=== PATIENT | male | born 1950 | race Caucasian/White ===

== ENCOUNTER 2016-08-07 18:25 | Emergency (ER) | payer OTHER ==
[2016-08-07 15:55] LABS: BASOPHILS 0 %; EOSINOPHILS 0 %; IMMATURE GRANULOCYTES 0.3 %; IMMATURE GRANULOCYTES ABSOLUTE 0.01 10/3/uL (0.0-0.11); LYMPHOCYTES 22.5 %; LYMPHOCYTES ABSOLUTE 0.84 10/3/uL (0.67-4.30); MEAN CORPUS HGB CONC 34.1 g/dL (32.0-36.0); MEAN CORPUSCULAR HEMOGLOB 33.5 pg (26.0-34.0); MEAN CORPUSCULAR VOLUME 98.3 fL (80-100); MEAN PLATELET VOLUME 10.7 fL (9.2-13.0); MONOCYTES ABSOLUTE 0.26 10/3/uL (0.21-1.20); NEUTROPHILS 70.2 %; NEUTROPHILS ABSOLUTE 2.63 10/3/uL (2.02-8.40); PLATELET COUNT 239 10/3/uL (150-400); RBC DISTRIBUTION WIDTH 14.4 % (12.0-16.0)
[2016-08-07 15:56] LABS: ER CBC TAT 0 Hrs 08 Mins; HEMATOCRIT 45.2 % (40.0-51.0); HEMOGLOBIN 15.4 g/dL (13.6-17.8); MANUAL DIFF NO %; WHITE BLOOD CELLS 3.7 10/3/uL (4.5-10.5)
[2016-08-07 16:09] LABS: BUN (BLOOD UREA NITROGEN) 9 MG/DL (6-23); CALCIUM, SERUM 8.7 MG/DL (8.5-10.4); CHEST PAIN PROFILE TAT 0 Hrs 21 Mins; CHLORIDE, SERUM 100 MMOL/L (96-112); CO2 (CARBON DIOXIDE) 29 MMOL/L (24-34); CREATININE 1.19 MG/DL (0.70-1.30); GFR AFRICAN AMERICAN 73 ML/MIN (>=60); GFR NON AFRICAN AMERICAN 63 ML/MIN (>=60); GLUCOSE, SERUM 116 MG/DL (60-99); POTASSIUM, SERUM 3.6 MMOL/L (3.5-5.3); SODIUM, SERUM 136 MMOL/L (135-148); TROPONIN I 0.02 NG/ML (<0.05)
[2016-08-07 16:13] LABS: INTERNATIONAL NORMAL RATI 1.4 UNITS (-); PARTIAL THROMBO TIME 30.5 SEC (22.5-37.2); PROTIME (NOT ORD) 17.3 SEC (12.0-14.5)
[~2016-08-07 18:25] MED LIST: ASAB PO; B121000P IM; BETAMETH DIP0.052 TOP; CENTRUM PO; COREG3 PO; COUMADIN4 MG PO; COUMADIN6 MG PO; COUMADIN7.5 MG PO; CRESTOR40 MG PO; FLEXERIL5 MG PO; LORTAB 5 PO; NEXIUM40 PO; NORCO1 TA1 PO; NORCO1 TAB PO; NORV25 PO; PRILO PO; PROTONIX PO; RX CREAM TOP; ZANTAC 150 PO; ZANTAC300 MG PO; [UNRECOGNIZED DRUG - REMARK] PO; [UNRECOGNIZED DRUG - SUPPLY] TOP
== END 2016-08-07 20:57 | disposition home or self-care (01) ==
LOC: ER 18:25
PROVIDERS: Emergency Medicine
DX: R51 Headache (principal); J18.9 Pneumonia, unspecified organism; I10 Essential (primary) hypertension; Z88.5 Allergy status to narcotic agent; Z88.8 Allergy status to other drugs, medicaments and biological substances; Z79.899 Other long term (current) drug therapy; Z79.01 Long term (current) use of anticoagulants
CPT/HCPCS: 70450; 71020; 80048; 83735; 84484; 85025; 85610; 85730; 93005; 96372; 99284; J1170; J2405

== ENCOUNTER 2016-08-25 10:52 | Inpatient (IN) | payer OTHER ==
[2016-08-23 22:32] LABS: ALBUMIN 3.3 G/DL (3.5-5.0); CALCIUM, SERUM 8.1 MG/DL (8.5-10.4); CHLORIDE, SERUM 96 MMOL/L (96-112); CO2 (CARBON DIOXIDE) 26 MMOL/L (24-34); CREATININE 1.45 MG/DL (0.70-1.30); GFR AFRICAN AMERICAN 58 ML/MIN (>=60); GFR NON AFRICAN AMERICAN 50 ML/MIN (>=60); GLUCOSE, SERUM 120 MG/DL (60-99); SGOT(AST) 191 U/L (5-40); SGPT(ALT) 104 U/L (5-65); SODIUM, SERUM 132 MMOL/L (135-148); TOTAL BILIRUBIN 0.8 MG/DL (0-1.2)
[2016-08-23 22:37] LABS: A/G RATIO 0.9 (0.7-1.9); ALKALINE PHOSPHATASE 85 U/L (45-117); BUN (BLOOD UREA NITROGEN) 22 MG/DL (6-23); GLOBULIN 3.7 G/DL (2.5-4.1); POTASSIUM, SERUM 4.5 MMOL/L (3.5-5.3)
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
--- NOTE | ~2016-08-25 | DS ---
Discharge Summary [place] [address] [place]. [address] NAME: BANDAR TRAYLOR : 50 STATUS : DIS IN PAT#: [id number] AGE: 66 ADM/REG DATE : 08/25/16 MR#: [id number] REPORT SERV DATE: 08/31/16 DICTATED BY: JASPER MENARD DATE: 08/30/16 REPORT STATUS : Draft TRANSCRIBED BY: ROGE DATE: 08/30/16 ADMISSION DATE: 08/25/2016 DISCHARGE DATE: 08/30/2016 DISCHARGE DIAGNOSES: 1. Sepsis. 2. Pneumonia. 3. Atrial fibrillation with rapid ventricular response, on chronic anticoagulation, INR therapeutic. 4. Hypertension. 5. Remote history of bilateral deep vein thrombosis. DISCHARGE CONDITION: Stable. HISTORY OF PRESENT ILLNESS: For detailed HPI, make reference to Dr. Charlene Regalado's dictation on 08/25/2016. In brief, this is a 66-year-old male with medical history of atrial fibrillation on chronic anticoagulation who presented to the hospital with complaints of fever. It was noted that the patient measured his temperature at home. It was 102.7. On arrival in the ER, vitals, blood pressure was 117/72, temperature was 98.3, respiratory rate 22, saturating 94% on room air. Physical exam was noted for diminished breath sounds bilaterally with decreased respiratory effort. Heart rate was irregularly irregular. LABORATORY DATA: Sodium was 133, potassium was 4.4, creatinine was 1.1. White cell count was 9.7. Procalcitonin was 1.19. Chest x-ray shows hyper aerated lungs with mild interstitial thickening consistent with possible COPD but noted on the CT of the chest, abdomen, and pelvis was interval development of bibasilar interstitial thickening with possible infiltrates concerning for pneumonia. Also noted was a perinephric fat stranding nonspecific but concerning for possible pyelonephritis. The patient was admitted to the hospital with diagnosis of sepsis to rule out pneumonia versus pyelonephritis. HOSPITAL COURSE: 1. Sepsis. Blood culture and urine cultures were obtained. The patient was started on broad-spectrum antibiotics with ceftriaxone and doxycycline. Of note, on presentation, the patient also reported possible exposure to tick and concern for Lyme disease. However, the patient's primary care physician had ordered a Lyme serology. Lyme serology came back negative during the course of this admission. The patient continued broad-spectrum antibiotics throughout the course of this admission. Urology was consulted to evaluate the patient to comment on the CT findings of perinephric abscess with the presence of low-grade UPJ obstruction. Per Urology, urinalysis was negative. Urine culture negative. The patient's source of sepsis less likely to be pyelonephritis based on negative evaluation. Also, the low-grade UPJ was nonsignificant, likely noted obstruction was due to the gonadal vessels. No urological intervention was performed during the course of this admission. The patient's procalcitonin trended down and returned back to normal. The patient's fever also subsided. The patient had a respiratory culture that grew normal victor m. Also, there was concern for possible mycobacterium avium per the patient's report. Hence, an AFB Discharge Summary [address] [address] NAME: BANDAR TRAYLOR : 50 STATUS : DIS IN PAT#: [id number] AGE: 66 ADM/REG DATE : 08/25/16 MR#: [id number] REPORT SERV DATE: 08/31/16 DICTATED BY: JASPER MENARD DATE: 08/30/16 REPORT STATUS : Draft TRANSCRIBED BY: ROGE DATE: 08/30/16 was done but returned negative. The patient was advised to complete empiric treatment for pneumonia with ceftriaxone and doxycycline to complete a total of seven days therapy. The patient was discharged in a stable condition. 2. Atrial fibrillation with RVR. The patient's INR remained therapeutic throughout the course of this admission. The patient was continued on Lopressor 12.5 mg. The patient's heart rate was controlled. The patient had no chest pain. No elevated troponin throughout the course of this admission. No cardiovascular intervention was performed during this admission. The patient was advised to continue warfarin and beta zeinab and follow up with primary care physician as well as the primary supervisor pumping. 3. Transaminitis. The patient's liver enzyme was marginally elevated but remained stable throughout the course of this admission. The patient reported that he has extensive history of alcohol abuse. Etiology of mildly elevated AST and ALT likely due to alcohol as the ratio of the ALT to AST was 1 to 2. Hepatitis panel was checked during this admission, came back negative. The patient was advised to continue to follow up with primary care physician. DISCHARGE MEDICATIONS: 1. Omnicef 300 mg p.o. b.i.d. 2. Doxycycline 100 mg p.o. b.i.d. 3. Lopressor 12.5 mg p.o. b.i.d. 4. Warfarin 6 mg p.o. daily. DISCHARGE FOLLOWUP: 1. Follow up with primary care physician. 2. Follow up with Cardiology. DISCHARGE ACTIVITIES: As tolerated. DISCHARGE DIET: Low-salt diet. DISCHARGE DISPOSITION: Home. The patient declined home PT, home health, and rehab during this admission. DICTATED BY: MD PAIGE Monterroso/ROGE Jasper Menard MD / [id number] CC: Robin Pantoja D.O. Discharge Summary [address] [address] NAME: BANDAR TRAYLOR : 50 STATUS : DIS IN PAT#: [id number] AGE: 66 ADM/REG DATE : 08/25/16 MR#: [id number] REPORT SERV DATE: 08/31/16 DICTATED BY: JASPER MENARD DATE: 08/30/16 REPORT STATUS : Draft TRANSCRIBED BY: MODKarina DATE: 08/30/16 Charlene Regalado M.D.
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
[2016-08-25 12:10] LABS: BASOPHILS 2.2 %; BASOPHILS ABSOLUTE 0.21 10/3/uL (0.0-0.16); EOSINOPHILS 0 %; IMMATURE GRANULOCYTES 0.3 %; LYMPHOCYTES 59.9 %; LYMPHOCYTES ABSOLUTE 5.81 10/3/uL (0.67-4.30); MEAN CORPUS HGB CONC 35.6 g/dL (32.0-36.0); MEAN CORPUSCULAR HEMOGLOB 32.3 pg (26.0-34.0); MEAN PLATELET VOLUME 12.8 fL (9.2-13.0); MONOCYTES 7.8 %; MONOCYTES ABSOLUTE 0.76 10/3/uL (0.21-1.20); NEUTROPHILS 29.8 %; NEUTROPHILS ABSOLUTE 2.89 10/3/uL (2.02-8.40); RBC DISTRIBUTION WIDTH 14.7 % (12.0-16.0); RED CELL COUNT 4.02 10/6/uL (4.7-6.1)
[2016-08-25 12:14] LABS: ER CBC TAT 0 Hrs 15 Mins; HEMATOCRIT 36.5 % (40.0-51.0); IMMATURE GRANULOCYTES ABSOLUTE 0.03 10/3/uL (0.0-0.11); MANUAL DIFF NO %; MEAN CORPUSCULAR VOLUME 90.8 fL (80-100); PLATELET COUNT 124 10/3/uL (150-400); WHITE BLOOD CELLS 9.7 10/3/uL (4.5-10.5)
[2016-08-25 12:17] LABS: INTERNATIONAL NORMAL RATI 1.7 UNITS (-); PROTIME (NOT ORD) 19.8 SEC (12.0-14.5)
[2016-08-25 12:18] LABS: PARTIAL THROMBO TIME 41.2 SEC (22.5-37.2)
[2016-08-25 12:26] LABS: A/G RATIO 0.8 (0.7-1.9); ALBUMIN 2.6 G/DL (3.5-5.0); ALKALINE PHOSPHATASE 72 U/L (45-117); BUN (BLOOD UREA NITROGEN) 21 MG/DL (6-23); CALCIUM, SERUM 7.8 MG/DL (8.5-10.4); CHLORIDE, SERUM 100 MMOL/L (96-112); CO2 (CARBON DIOXIDE) 24 MMOL/L (24-34); CREATININE 1.11 MG/DL (0.70-1.30); GFR AFRICAN AMERICAN 80 ML/MIN (>=60); GFR NON AFRICAN AMERICAN 69 ML/MIN (>=60); GLOBULIN 3.1 G/DL (2.5-4.1); GLUCOSE, SERUM 141 MG/DL (60-99); POTASSIUM, SERUM 4.4 MMOL/L (3.5-5.3); SGOT(AST) 209 U/L (5-40); SGPT(ALT) 96 U/L (5-65); SODIUM, SERUM 133 MMOL/L (135-148); TOTAL BILIRUBIN 0.8 MG/DL (0-1.2); TOTAL PROTEIN 5.7 G/DL (6.0-8.5)
[2016-08-25 12:30] LABS: LACTATE 1.7 MMOL/L (0.3-2.4)
[2016-08-25 12:50] LABS: ASCORBIC ACID (UR NOT ORDER) 40 (NEG); BILIRUBIN, URINE NEGATIVE (NEG); ER URINALYSIS TAT 0 Hrs 00 Mins; KETONE, URINE NEGATIVE (NEG); LEUKOCYTE ESTERASE(NOT OR NEG (NEG); NITRITE (URINE) NEG (NEG); WBC (NOT ORDERED) (RFLEX) 1 (0-5)
[2016-08-25 13:09] LABS: SEGMENTED NEUTROPHIL (0) 54 %; TOTAL NUCLEATED CELLS 100
[2016-08-25 13:11] LABS: BAND NEUTROPHILS 10 %; ER DIFF TAT 1 Hrs 10 Mins; LYMPHOCYTES 24 %; LYMPHOCYTES ABSOLUTE (CALC) 2.33 10/3/uL (0.67-4.30); MONOCYTES 12 %; MONOCYTES ABSOLUTE (CALC) 1.16 10/3/uL (0.21-1.20); NEUTROPHILS ABSOLUTE (CALC) 6.21 10/3/uL (2.02-8.40)
[2016-08-25 13:12] LABS: ELLIPTOCYTES 1+ (3-10/OIF) (0-2/OIF); TARGET CELLS FEW (3-10/OIF) (0-1/OIF)
[2016-08-25 13:13] LABS: SMUDGE CELLS FEW
[2016-08-25 13:14] LABS: PLATELET ESTIMATE DEC (ADEQUATE)
[2016-08-25 13:37] LABS: PROCALCITONIN 1.96 ng/mL (<0.5)
[2016-08-25] MEDS ORDERED: JANTOVEN1 MG PO (14:46)
[2016-08-25] MEDS ORDERED: JANTOVEN6 MG PO (14:47)
[2016-08-25 15:55] LABS: LYME AB SCREEN RESULT Negative (NEG)
[2016-08-25 18:54] LABS: C-REACTIVE PROTEIN 12.8 MG/L (<8.0); TROPONIN I 0.03 NG/ML (<0.05)
[2016-08-25 18:59] LABS: ULTRASENSITIVE TSH 1.22 MCIU/ML (0.358-3.740)
[2016-08-25 19:11] LABS: INFLUENZA A SCREEN NEGATIVE (NEGATIVE); INFLUENZA B SCREEN NEGATIVE (NEGATIVE)
[2016-08-26 05:15] LABS: HEMOGLOBIN 11.7 g/dL (13.6-17.8); MEAN CORPUS HGB CONC 35.7 g/dL (32.0-36.0); MEAN CORPUSCULAR HEMOGLOB 32.4 pg (26.0-34.0); MEAN CORPUSCULAR VOLUME 90.9 fL (80-100); MEAN PLATELET VOLUME 13.5 fL (9.2-13.0); PLATELET COUNT 126 10/3/uL (150-400); RBC DISTRIBUTION WIDTH 14.9 % (12.0-16.0); RED CELL COUNT 3.61 10/6/uL (4.7-6.1); WHITE BLOOD CELLS 8.1 10/3/uL (4.5-10.5)
[2016-08-26 05:22] LABS: INTERNATIONAL NORMAL RATI 1.9 UNITS (-); PROTIME (NOT ORD) 21.7 SEC (12.0-14.5)
[2016-08-26 05:24] LABS: HEMATOCRIT 32.8 % (40.0-51.0); MANUAL DIFF YES %
[2016-08-26 05:38] LABS: A/G RATIO 0.8 (0.7-1.9); ALBUMIN 2.3 G/DL (3.5-5.0); ALKALINE PHOSPHATASE 66 U/L (45-117); CALCIUM, SERUM 7.3 MG/DL (8.5-10.4); CHLORIDE, SERUM 103 MMOL/L (96-112); CO2 (CARBON DIOXIDE) 23 MMOL/L (24-34); CREATININE 0.95 MG/DL (0.70-1.30); GFR AFRICAN AMERICAN 96 ML/MIN (>=60); GFR NON AFRICAN AMERICAN 83 ML/MIN (>=60); POTASSIUM, SERUM 4.4 MMOL/L (3.5-5.3); SGOT(AST) 194 U/L (5-40); SGPT(ALT) 93 U/L (5-65); SODIUM, SERUM 133 MMOL/L (135-148); TOTAL BILIRUBIN 0.8 MG/DL (0-1.2); TOTAL PROTEIN 5.3 G/DL (6.0-8.5)
[2016-08-26 05:41] LABS: BUN (BLOOD UREA NITROGEN) 17 MG/DL (6-23); GLUCOSE, SERUM 97 MG/DL (60-99)
[2016-08-26 06:18] LABS: BAND NEUTROPHILS 13 %; LYMPHOCYTES 51 %; LYMPHOCYTES ABSOLUTE (CALC) 4.13 10/3/uL (0.67-4.30); MONOCYTES 4 %; MONOCYTES ABSOLUTE (CALC) 0.32 10/3/uL (0.21-1.20); NEUTROPHILS ABSOLUTE (CALC) 3.65 10/3/uL (2.02-8.40); PLATELET ESTIMATE SLT DEC (ADEQUATE); POIKILOCYTOSIS 1+ (5-10/OIF) (0-5/OIF); POLYCHROMASIA 1+ (2-5/OIF) (0-1/OIF); SEGMENTED NEUTROPHIL (0) 32 %; TOTAL NUCLEATED CELLS 100
[2016-08-26 06:19] LABS: BURR CELLS 1+ (3-10/OIF) (0-2/OIF)
[2016-08-26 06:24] LABS: SMUDGE CELLS FEW
[2016-08-26 14:24] LABS: WBC (NOT ORDERED) (RFLEX) 0 (0-5)
[2016-08-26 14:26] LABS: ALBUMIN 2.3 G/DL (3.5-5.0); DIRECT BILIRUBIN 0.2 MG/DL (0.0-0.4); INDIRECT BILIRUBIN(NOT ORDER) 0.4 MG/DL (0.1-0.9); TOTAL BILIRUBIN 0.6 MG/DL (0-1.2); TOTAL PROTEIN 5.4 G/DL (6.0-8.5)
[2016-08-26 14:33] LABS: ASCORBIC ACID (UR NOT ORDER) NEG (NEG); BILIRUBIN, URINE NEGATIVE (NEG); KETONE, URINE NEGATIVE (NEG); LEUKOCYTE ESTERASE(NOT OR NEG (NEG)
[2016-08-26 14:37] LABS: C-REACTIVE PROTEIN 8.1 MG/L (<8.0)
[2016-08-26 14:55] LABS: PROTIME (NOT ORD) 22.1 SEC (12.0-14.5)
[2016-08-27 05:25] LABS: INTERNATIONAL NORMAL RATI 1.8 UNITS (-); PROTIME (NOT ORD) 20.7 SEC (12.0-14.5)
[2016-08-27 05:38] LABS: ALBUMIN 2.4 G/DL (3.5-5.0); ALKALINE PHOSPHATASE 67 U/L (45-117); BUN (BLOOD UREA NITROGEN) 15 MG/DL (6-23); CALCIUM, SERUM 8.1 MG/DL (8.5-10.4); CHLORIDE, SERUM 108 MMOL/L (96-112); CO2 (CARBON DIOXIDE) 25 MMOL/L (24-34); CREATININE 0.93 MG/DL (0.70-1.30); DIRECT BILIRUBIN 0.1 MG/DL (0.0-0.4); GFR AFRICAN AMERICAN 99 ML/MIN (>=60); GFR NON AFRICAN AMERICAN 85 ML/MIN (>=60); GLUCOSE, SERUM 101 MG/DL (60-99); INDIRECT BILIRUBIN(NOT ORDER) 0.4 MG/DL (0.1-0.9); PHOSPHORUS, SERUM 3.4 MG/DL (2.5-4.5); POTASSIUM, SERUM 4.5 MMOL/L (3.5-5.3); SGOT(AST) 168 U/L (5-40); SGPT(ALT) 89 U/L (5-65); TOTAL BILIRUBIN 0.5 MG/DL (0-1.2); TOTAL PROTEIN 5.7 G/DL (6.0-8.5)
[2016-08-27 05:40] LABS: HEMOGLOBIN 12.9 g/dL (13.6-17.8); MEAN CORPUS HGB CONC 35.4 g/dL (32.0-36.0); MEAN CORPUSCULAR HEMOGLOB 32.3 pg (26.0-34.0); MEAN CORPUSCULAR VOLUME 91.2 fL (80-100); MEAN PLATELET VOLUME 13.2 fL (9.2-13.0); PLATELET COUNT 148 10/3/uL (150-400); RED CELL COUNT 3.99 10/6/uL (4.7-6.1); WHITE BLOOD CELLS 10.8 10/3/uL (4.5-10.5)
[2016-08-27 05:41] LABS: HEMATOCRIT 36.4 % (40.0-51.0); MANUAL DIFF YES %; SODIUM, SERUM 141 MMOL/L (135-148)
[2016-08-27 05:58] LABS: BASOPHILS 1 %; BASOPHILS ABSOLUTE (CALC) 0.11 10/3/uL (0.0-0.16); EOSINOPHILS 1 %; EOSINOPHILS ABSOLUTE (CALC) 0.11 10/3/uL (0.0-0.53); LYMPHOCYTES 77 %; LYMPHOCYTES ABSOLUTE (CALC) 8.32 10/3/uL (0.67-4.30); MONOCYTES 11 %; MONOCYTES ABSOLUTE (CALC) 1.19 10/3/uL (0.21-1.20); NEUTROPHILS ABSOLUTE (CALC) 1.08 10/3/uL (2.02-8.40); SEGMENTED NEUTROPHIL (0) 10 %; SMUDGE CELLS MOD; TOTAL NUCLEATED CELLS 100
[2016-08-27 05:59] LABS: BURR CELLS 1+ (3-10/OIF) (0-2/OIF); PLATELET ESTIMATE SLT DEC (ADEQUATE); TARGET CELLS FEW (3-10/OIF) (0-1/OIF)
[2016-08-27 08:26] LABS: ROCKY MTN SPOTTED FEVER AB IGG <1:64; ROCKY MTN SPOTTED FEVER AB IGM <1:64
[2016-08-27 08:59] LABS: HEPATITIS C ANTIBODY NON-REACTIVE (NON-REACT)
[2016-08-27 09:00] LABS: HEPATITIS B CORE AB IGM NON-REACTIVE (NON-REAC)
[2016-08-27 09:01] LABS: HEP A ANTIBODY IGM NON-REACTIVE (NON-REACT)
[2016-08-27 09:03] LABS: HEPATITIS B SURFACE ANTIGEN NON-REACTIVE (NON-REACT)
[2016-08-27 19:16] LABS: ASCORBIC ACID (UR NOT ORDER) NEG (NEG); BILIRUBIN, URINE NEGATIVE (NEG); KETONE, URINE NEGATIVE (NEG); LEUKOCYTE ESTERASE(NOT OR NEG (NEG); WBC (NOT ORDERED) (RFLEX) < 1 (0-5)
[2016-08-27 19:57] LABS: HEMOGLOBIN 13.7 g/dL (13.6-17.8); MEAN CORPUS HGB CONC 35.1 g/dL (32.0-36.0); MEAN CORPUSCULAR HEMOGLOB 32.4 pg (26.0-34.0); MEAN CORPUSCULAR VOLUME 92.2 fL (80-100); MEAN PLATELET VOLUME 13.1 fL (9.2-13.0); PLATELET COUNT 170 10/3/uL (150-400); RBC DISTRIBUTION WIDTH 15.3 % (12.0-16.0); RED CELL COUNT 4.23 10/6/uL (4.7-6.1); WHITE BLOOD CELLS 8.2 10/3/uL (4.5-10.5)
[2016-08-27 19:58] LABS: MANUAL DIFF YES %
[2016-08-27 20:28] LABS: EOSINOPHILS 2 %; EOSINOPHILS ABSOLUTE (CALC) 0.16 10/3/uL (0.0-0.53); LYMPHOCYTES 67 %; LYMPHOCYTES ABSOLUTE (CALC) 5.49 10/3/uL (0.67-4.30); MONOCYTES 11 %; NEUTROPHILS ABSOLUTE (CALC) 1.64 10/3/uL (2.02-8.40); SEGMENTED NEUTROPHIL (0) 20 %; TOTAL NUCLEATED CELLS 100
[2016-08-27 20:29] LABS: PLATELET ESTIMATE ADQ (ADEQUATE); SMUDGE CELLS MOD
[2016-08-27 20:30] LABS: PATH REVIEW YES
[2016-08-28 06:52] LABS: HEMOGLOBIN 12.5 g/dL (13.6-17.8); MANUAL DIFF YES %; MEAN CORPUS HGB CONC 34.7 g/dL (32.0-36.0); MEAN CORPUSCULAR HEMOGLOB 31.9 pg (26.0-34.0); MEAN CORPUSCULAR VOLUME 91.8 fL (80-100); MEAN PLATELET VOLUME 13.1 fL (9.2-13.0); NUCLEATED RED BLOOD CELLS 2.1 /100WBC (0-0); PLATELET COUNT 180 10/3/uL (150-400); PROTIME (NOT ORD) 22.5 SEC (12.0-14.5); RBC DISTRIBUTION WIDTH 15.1 % (12.0-16.0); RED CELL COUNT 3.92 10/6/uL (4.7-6.1); WHITE BLOOD CELLS 7.3 10/3/uL (4.5-10.5)
[2016-08-28 07:34] LABS: BAND NEUTROPHILS 1 %; EOSINOPHILS 1 %; EOSINOPHILS ABSOLUTE (CALC) 0.07 10/3/uL (0.0-0.53); LYMPHOCYTES 73 %; LYMPHOCYTES ABSOLUTE (CALC) 5.33 10/3/uL (0.67-4.30); MONOCYTES 13 %; MONOCYTES ABSOLUTE (CALC) 0.95 10/3/uL (0.21-1.20); NEUTROPHILS ABSOLUTE (CALC) 0.95 10/3/uL (2.02-8.40); PLATELET ESTIMATE ADQ (ADEQUATE); SEGMENTED NEUTROPHIL (0) 12 %; TARGET CELLS OCC (1-2/OIF) (0-1/OIF); TEARDROP SHAPED RBCS OCC (0-2/OIF); TOTAL NUCLEATED CELLS 100
[2016-08-28 07:35] LABS: SMUDGE CELLS FEW
[2016-08-28 11:46] LABS: PATH REVIEW SEE PATHOLOGY REPORT
[2016-08-28 14:31] LABS: ASCORBIC ACID (UR NOT ORDER) NEG (NEG); BILIRUBIN, URINE NEGATIVE (NEG); KETONE, URINE NEGATIVE (NEG); LEUKOCYTE ESTERASE(NOT OR NEG (NEG); WBC (NOT ORDERED) (RFLEX) 1 (0-5)
[2016-08-29 07:05] LABS: INTERNATIONAL NORMAL RATI 2.5 UNITS (-); PROTIME (NOT ORD) 26.8 SEC (12.0-14.5)
[2016-08-29 07:15] LABS: BASOPHILS 0.3 %; BASOPHILS ABSOLUTE 0.02 10/3/uL (0.0-0.16); EOSINOPHILS 1.8 %; EOSINOPHILS ABSOLUTE 0.11 10/3/uL (0.0-0.53); HEMATOCRIT 37.4 % (40.0-51.0); HEMOGLOBIN 13.1 g/dL (13.6-17.8); IMMATURE GRANULOCYTES 0.2 %; IMMATURE GRANULOCYTES ABSOLUTE 0.01 10/3/uL (0.0-0.11); LYMPHOCYTES 59.9 %; LYMPHOCYTES ABSOLUTE 3.76 10/3/uL (0.67-4.30); MEAN CORPUSCULAR VOLUME 91.4 fL (80-100); MEAN PLATELET VOLUME 12.4 fL (9.2-13.0); MONOCYTES 16.4 %; MONOCYTES ABSOLUTE 1.03 10/3/uL (0.21-1.20); NEUTROPHILS 21.4 %; NEUTROPHILS ABSOLUTE 1.35 10/3/uL (2.02-8.40); NUCLEATED RED BLOOD CELLS 1.7 /100WBC (0-0); PLATELET COUNT 227 10/3/uL (150-400); RBC DISTRIBUTION WIDTH 15.4 % (12.0-16.0); RED CELL COUNT 4.09 10/6/uL (4.7-6.1); WHITE BLOOD CELLS 6.3 10/3/uL (4.5-10.5)
[2016-08-29 07:16] LABS: MANUAL DIFF NO %
[2016-08-29 07:19] LABS: CALCIUM, SERUM 8.3 MG/DL (8.5-10.4); CHLORIDE, SERUM 108 MMOL/L (96-112); CO2 (CARBON DIOXIDE) 28 MMOL/L (24-34); GFR AFRICAN AMERICAN 103 ML/MIN (>=60); GFR NON AFRICAN AMERICAN 89 ML/MIN (>=60); GLUCOSE, SERUM 118 MG/DL (60-99); POTASSIUM, SERUM 4.5 MMOL/L (3.5-5.3); SODIUM, SERUM 140 MMOL/L (135-148)
[2016-08-29 07:20] LABS: BUN (BLOOD UREA NITROGEN) 10 MG/DL (6-23)
[2016-08-29 07:21] LABS: C-REACTIVE PROTEIN 3.1 MG/L (<8.0)
[2016-08-29 07:58] LABS: PROCALCITONIN 0.28 ng/mL (<0.5)
[2016-08-29 08:57] LABS: SED RATE 7 MM/HR (0-15)
[2016-08-30 05:07] LABS: BASOPHILS 0.1 %; BASOPHILS ABSOLUTE 0.01 10/3/uL (0.0-0.16); EOSINOPHILS 1.2 %; EOSINOPHILS ABSOLUTE 0.09 10/3/uL (0.0-0.53); HEMATOCRIT 37.5 % (40.0-51.0); IMMATURE GRANULOCYTES 0.3 %; IMMATURE GRANULOCYTES ABSOLUTE 0.02 10/3/uL (0.0-0.11); LYMPHOCYTES 60.9 %; MANUAL DIFF NO %; MEAN CORPUS HGB CONC 34.7 g/dL (32.0-36.0); MEAN CORPUSCULAR HEMOGLOB 32.2 pg (26.0-34.0); MEAN CORPUSCULAR VOLUME 92.8 fL (80-100); MEAN PLATELET VOLUME 11.6 fL (9.2-13.0); MONOCYTES 14.2 %; MONOCYTES ABSOLUTE 1.03 10/3/uL (0.21-1.20); NEUTROPHILS 23.3 %; NEUTROPHILS ABSOLUTE 1.68 10/3/uL (2.02-8.40); PLATELET COUNT 282 10/3/uL (150-400); RBC DISTRIBUTION WIDTH 15.2 % (12.0-16.0); RED CELL COUNT 4.04 10/6/uL (4.7-6.1); WHITE BLOOD CELLS 7.2 10/3/uL (4.5-10.5)
[2016-08-30 05:14] LABS: INTERNATIONAL NORMAL RATI 3.2 UNITS (-)
[2016-08-30 05:15] LABS: PROTIME (NOT ORD) 32.7 SEC (12.0-14.5)
[2016-08-30] MEDS ORDERED: MONODOX100 MG PO (10:38)
[2016-08-30] MEDS ORDERED: LOP25 PO (10:38)
[2016-08-30] MEDS ORDERED: OMNICEF300 PO (10:40)
== END 2016-08-30 11:20 | disposition home or self-care (01) | DRG 871 ==
LOC: ER 10:52 → 6NO 15:39
PROVIDERS: Family Medicine; Hospitalist
DX: A41.9 Sepsis, unspecified organism (principal); J18.9 Pneumonia, unspecified organism; I48.0 Paroxysmal atrial fibrillation; J44.0 Chronic obstructive pulmonary disease with (acute) lower respiratory infection; I10 Essential (primary) hypertension; R79.89 Other specified abnormal findings of blood chemistry; M54.9 Dorsalgia, unspecified; Z88.5 Allergy status to narcotic agent; Z88.8 Allergy status to other drugs, medicaments and biological substances; Z90.49 Acquired absence of other specified parts of digestive tract; Z79.01 Long term (current) use of anticoagulants; Z87.891 Personal history of nicotine dependence; Z86.718 Personal history of other venous thrombosis and embolism; Z86.73 Personal history of transient ischemic attack (TIA), and cerebral infarction without residual deficits; Z90.3 Acquired absence of stomach [part of]; Z90.81 Acquired absence of spleen
CPT/HCPCS: 36415; 70450; 71010; 71020; 71250; 74176; 80048; 80053; 80069; 80074; 80076; 81001; 81003; 82140; 83605; 83735; 83880; 84145; 84443; 84484; 85025; 85610; 85652; 85730; 86140; 86618; 86738; 86757; 86757-59; 87015; 87040; 87070; 87116; 87205; 87449; 87804; 93005; 96365; 96366; 96375; 97161-GP; 99291; A9270-GY; C8929; G0463; J0456; J2405; Q9957